=== PATIENT | female | born 2005 | race Caucasian/White ===

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

== ENCOUNTER 2024-02-03 12:34 | Outpatient (REF) | payer MEDICAID, SELFPAY ==
[2024-02-03 14:13] LABS: Anion Gap 13 (12-20); Blood Urea Nitrogen 7 mg/dL (9-16); Carbon Dioxide 27 mmol/L (22-29); Chloride 102 mmol/L (96-108); Estimated Glomerular Filt Rate > 60; Glucose Random 91 mg/dL (60-115); Potassium 4.2 mmol/L (3.3-5.1); Sodium 138 mmol/L (135-145)
[2024-02-04 05:34] LABS: Estimated Average Glucose 88 mg/dL; Hemoglobin A1C 92.1445 umol/L; Hemoglobin A1c % 4.7 % (<6.0); Total Hemoglobin (HGBA1C) 3302.3263 umol/L
[2024-02-04 12:31] LABS: Bacterial Vaginosis PCR NEGATIVE (Negative); Candida Group PCR NOT DETECTED (Not Detect); Candida glab krusei PCR DETECTED (Not Detect); Trichomonas vaginalis PCR NOT DETECTED (Not Detect)
== END 2024-02-03 12:35 | disposition home or self-care (01) ==
LOC: HO.HHCL 12:34
PROVIDERS: Visit Provider Nurse Practitioner Family
DX: N89.8 Other specified noninflammatory disorders of vagina (principal); E66.09 Other obesity due to excess calories; R30.0 Dysuria
CPT/HCPCS: 0352U; 36415; 80048; 83036; 87086

== ENCOUNTER 2025-03-07 16:06 | Outpatient (REF) | payer MEDICAID, SELFPAY ==
--- OUTSIDE RECORDS SUMMARY | 2025-03-07 15:00 | XMS_ITS | Encounter Summary ---
Author Organization [employer] Address [address] [place] [address] Care Team Providers Care Halfway House Counselor Name Role Phone Mahi Skinner MD Primary Care Provider [phone] Reason for Visit * Reason Comments UTI Cough Encounter Details Date Type Department Care Team ([facility] Contact Info) Description 03/07/2025 3:00 PM EST Office Visit [facility] [address] [place] [address] Cough in adult patient; UTI symptoms Social History Tobacco Use Types Packs/Day Years Used Date Smoking Tobacco: Never Passive Smoke Exposure: Never Smokeless Tobacco: Never Tobacco Cessation:Counseling Given: Not Answered Alcohol Use Standard Drinks/Week Comments Never 0 (1 standard drink = 0.6 oz pur e alcohol) Alcohol Answer Date Recorded Frequency of Alcohol Consumption Not on file 12/23/2023 Average Number of Drinks Not on file 024 Frequency of Binge Drinking Not on file 10/2023 Score 0 12/23/2023 Depression Answer Date Recorded Patient Health Questionnaire-9 Score 14 12/23/2023 Patient Health Questionnaire-9 Score 14 12/23/2023 Last PHQ-9: Questionnaire Data Not on file 1 Housing Stability Answer Date Recorded What is your housing situation today? I have meghana esposito 08/26/[address] you li ve. Do you have problems with any of the following? None of the above 08/26/2023 Food Insecurity Answer Date Recorded Within the past 12 months, y ou worried that your food would run out before you got money to buy more: Never True 08/26/2023 Within the past 12 months,th e food you bought just didn't last and you didn't have enough money to get more: Never True 01/2024 Transportation Answer Date Recorded In the past 12 months, has l ack of transportation kept you from medical appts, meetings, work or from getting things needed for daily living? No 08/26/2023 Utilities Answer Date Recorded In the past 12 months, has t he electric, gas, oil or water company threatened to shut off services in your home? No 08/26/2023 Depression Answer Date Recorded Patient Health Questionnaire-2 Score 2 12/23/2023 Comments Unknown Sex and Gender Information Value Date Recorded Sex Assigned at Female 01/14/2022 10:29 AM EDT Legal Sex Female 10:29 AM EDT Gender Identity Female 01/14/2022 10:29 AM EDT Sexual Orientation Bisexual 06/06/2022 11 :22 AM EDT documented as of this encounter Last Filed Vital Signs Vital Sign Reading Time Taken Comments Blood Pressure 156/84 03/07/2025 3:07 PM EST Pulse 80 03/07/2025 3:07 PM EST Temperature 36.7 C (98.1 F) 03/07/2025 3:07 PM EST Respiratory Rate 16 03/07/2025 3:07 PM EST Oxygen Saturation 99% 03/07/2025 3:07 PM EST Inhaled Oxygen Concentration - - Weight 99.8 kg (220 lb) 03/07/2025 3:07 PM EST Height - - Body Mass Index 37.76 02/03/2024 11:20 AM EST documented in this encounter Plan of Treatment Upcoming Encounters Date Type Department Care Team (Late st Contact Info) Description 05/04/2025 11:00 AM EST Office Visit [facility] [address] [place] [address] Afshin, Radha, OD [address] [place] [address] Scheduled Orders Name Type Priority Associated Diagnoses Orde r Schedule Culture, Urine, Routine Microbiology Routine UTI symptoms Ordered: 03/07/2025 Bacterial Vaginosis Microbiology Routine UTI symptoms Ordered: 03/07/2025 documented as of this encounter Procedures Procedure Name Priority Date/Time Associated Diagnosis Comments POCT INFLUENZA B (ID NOW RAPID MOLECULAR) Routine 03/07/2025 3:24 PM EST Cough in adult patient POCT INFLUENZA A (ID NOW RAPID MOLECULAR) Routine 03/07/2025 3:24 PM EST Cough in adult patient POCT RAPID COVID ANTIGEN Routine 03/07/2025 3:21 PM EST Cough in adult patient POCT URINALYSIS DIPSTICK Routine 03/07/2025 3:21 PM EST UTI symptoms documented in this encounter Results * Influenza A (ID NOW Rapid Molecular) (03/07/2025 3:24 PM EST) [facility] Influenza A Negative Negative, Indeterminate [facility] Swab 03/07/2025 3:24 PM EST [facility] POINT OF CARE TEST ENTER/EDIT ORDERABLES Final Result Performing Organization Address [facility] Co de Phone Number [facility] [address] [place] [phone] * Influenza B (ID NOW Rapid Molecular) (03/07/2025 3:24 PM EST) [facility] Influenza B Negative Negative, Indeterminate [facility] Swab 03/07/2025 3:24 PM EST Result [facility] POINT OF CARE TEST ENTER/EDIT ORDERABLES Final Result Performing Organization Address [facility] Co de Phone Number [facility] [address] [place] [phone] * POCT Rapid COVID Ag (03/07/2025 3:21 PM EST) [facility] Rapid COVID Ag Negative Swab 03/07/2025 3:21 PM EST [facility] POINT OF CARE TEST ENTER/EDIT ORDERABLES Final Result * (ABNORMAL) POCT urinalysis dipstick manually resulted (CPT 29255) (03/07/2025 3:21 PM EST) Color, UA Yellow Comment:Dark Clarity, UA Clear Glucose, UA Negative Bilirubin, UA Negative Ketones, UA Positive Comment:Trace Spec Grav, UA 1.025 Blood, UA Positive(A) Negative, None Detected pH, UA 6.5 Protein, UA Moderate Comment:30Mg Urobilinogen, UA 0.2 Leukocytes, UA Negative Negative, Rare, Trace, 1+ (17), 2+ (35), 3+ (70), Trace (15) Nitrite, UA Negative Negative, None Detected Appearance, UA OK Urine (Urine, Random) 03/07/2025 3:21 PM EST [facility] POINT OF CARE TEST ENTER/EDIT ORDERABLES Final Result documented in this encounter Visit Diagnoses Diagnosis Cough in adult patient UTI symptoms documented in this encounter Additional Health Concerns Assessment Noted Time PHQ-9 Depression Total Score: 14 024 11:46 AM EDT documented as of this encounter Care Teams Halfway House Counselor Relationship Specialty Start Date End Date Mahi Skinner MD [address] [place] [phone] PCP - General Pediatrics 12/11/15 documented as of this encounter
--- OUTSIDE RECORDS SUMMARY | 2025-03-07 18:45 | XMS_ITS | Encounter Summary ---
Author Organization [employer] Address [address] [place] [address] [address] [place] [address] Care Team Providers Care Authorization Manager Name Role Phone Mahi Skinner MD Primary Care Provider Encounter Details Date Type Department Care Team (Late st Contact Info) Description 05/28/2023 Orders Only [facility] [address] [place] [address] Carol Lopez MD [address] [place] [address] Asymptomatic microscopic hematuria (Primary Dx) Social History Tobacco Use Types Packs/Day Years Used Date Smoking Tobacco: Never Passive Smoke Exposure: Never Smokeless Tobacco: Never Comments Unknown Sex and Gender Information Value Date Recorded Sex Assigned at Female 01/14/2022 10:29 AM EDT Legal Sex Female 10:29 AM EDT Gender Identity Female 01/14/2022 10:29 AM EDT Sexual Orientation Bisexual 06/06/2022 11 :22 AM EDT documented as of this encounter Plan of Treatment Upcoming Encounters Date Type Department Care Team (Late st Contact Info) Description 05/04/2025 11:00 AM EST Office Visit [facility] [address] [place] [address] Afshin, Radha, OD [address] [place] [address] documented as of this encounter Procedures Procedure Name Priority Date/Time Associated Diagnosis Comments URINALYSIS, COMPLETE, WITH REFLEX TO CULTURE Routine 06/16/2023 12:15 PM EDT Asymptomatic microscopic hematuria documented in this encounter Results * Urinalysis, Complete, with Reflex to Culture (06/16/2023 12:15 PM EDT) Color Urine Yellow [facility] Appearance Urine Clear [facility] PH 6.5 5.0 - 9.0 [facility] Glucose Urine UA Negative Negative mg/dL [facility] Urine Blood Negative Negative [facility] Specific [place] - Urine 1.025 1.005 - 1.025 [facility] Urine Protein Trace Neg-Trace mg/dL [facility] Urine Ketones Negative Negative mg/dL [facility] Nitrite Urine Negative Negative [facility] Leukocyte Esterase Urine Negative Negative [facility] RBC Urine 0-2 0 - 2 /HPF [facility] Urine WBC 0-5 0 - 5 /HPF [facility] Urine Squamous Epithelial Cell 0-2 0 - 2 /HPF [facility] Urine Bacteria Trace None Seen [facility] Hyaline Casts, Urine 3-5 0 - 2 /LPF [facility] Urine 06/16/2023 12:1 5 PM EDT 06/16/2023 1:29 PM EDT Narrative [facility] - 06/16/2023 2:35 PM EDT Urine, Clean Catch us Carol Lopez MD LAB URINE ORDERABLES Final Re sult [facility] [address] [place] [phone] documented in this encounter Visit Diagnoses Diagnosis Asymptomatic microscopic hematuria- Primary documented in this encounter Care Teams Authorization Manager Relationship Specialty Start Date End Date Mahi Skinner MD [address] [place] [address] PCP - General Pediatrics 12/11/15 documented as of this encounter
--- OUTSIDE RECORDS SUMMARY | 2025-03-07 18:45 | XMS_ITS | Encounter Summary ---
Author Organization [employer] Address [address] [facility] [address] [place] [address] Care Team Providers Care Manager Content Name Role Phone Mahi Skinner MD Primary Care Provider [phone] Reason for Visit * Reason Onset Date Comments Med Refill 12/28/2024 Encounter Details Date Type Department Care Team ([facility] Contact Info) Description 12/28/2024 Telephone [facility] [address] [place], [place] [phone] Mahi Skinner MD [address] [place], [place] [phone] Med Refill Social History Tobacco Use Types Packs/Day Years Used Date Smoking Tobacco: Never Passive Smoke Exposure: Never Smokeless Tobacco: Never Alcohol Use Standard Drinks/Week Comments Never 0 [...] AM EDT documented as of this encounter Miscellaneous Notes * Telephone Encounter - Mahi Mcfarland MD - 12/28/2024 12:35 PM EDT Script sent to [facility] pharmacy * Telephone Encounter - Eliane Lucas LPN - 12/28/2024 12:23 PM EDT Please review does PCP prescribe? * Telephone Encounter - Ellie Hilario - 12/28/2024 12:03 PM EDT TC from pt requesting medication refill. Medications needing refill : - valACYclovir (Valtrex) 500 MG tablet To be sent to: - [facility] - [place], [place] - [address] documented in this encounter Plan of Treatment Upcoming Encounters Date Type Department Care Team (Late st Contact Info) Description 05/04/2025 11:00 AM EST Office Visit [facility] [address] [place], [place] [phone] Radha Pepe, OD [address] [place] [address] documented as of this encounter Visit Diagnoses Not on filedocumented in this encounter Additional Health Concerns Assessment Noted Time PHQ-9 Depression Total Score: 14 024 11:46 AM EDT documented as of this encounter Care Teams Manager Content Relationship Specialty Start Date End Date Mahi Skinner MD [address] [place] [address] PCP - General Pediatrics 12/11/15 documented as of this encounter
--- OUTSIDE RECORDS SUMMARY | 2025-03-07 18:45 | XMS_ITS | Encounter Summary ---
Author Organization [employer] Address [address] [place] [address] [address] [place] [address] Care Team Providers Care Travel Insurance Agent Name Role Phone Mahi Skinner MD Primary Care Provider [phone] Reason for Visit * Reason Onset Date Comments Pt1 12/24/2022 Encounter Details Date Type Department Care Team ([facility] Contact Info) Description 12/24/2022 Telephone [facility] [address] [place] [phone] Mahi Skinner MD [address] [place] [phone] Pt1 Social History Tobacco Use Types Packs/Day Years [...] encounter Miscellaneous Notes * Telephone Encounter - Irene Jin - 12/24/2022 3:27 PM EDT PT 1 initiated using site guardian will receive letter with instructions * Telephone Encounter - Lakeisha Tim - 12/24/2022 2:19 PM EDT Tc from pt mother requesting a PT1 Location: [facility] [address] [facility] Specialty:Dental appt Date&Time:01/09/23 @ 1pm K 12 Principal: yes documented in this encounter Plan of Treatment Upcoming Encounters Date Type Department Care Team (Late st Contact Info) Description 05/04/2025 11:00 AM EST Office Visit [facility] [address] [place] [address] Radha Pepe, OD [address] [place], [place] [phone] documented as of this encounter Visit Diagnoses Not on filedocumented in this encounter Care Teams Travel Insurance Agent Relationship Specialty Start Date End Date Mahi Skinner MD [address] [place], [place] [phone] PCP - General Pediatrics 12/11/15 documented as of this encounter
--- OUTSIDE RECORDS SUMMARY | 2025-03-07 18:45 | XMS_ITS | Encounter Summary ---
Author Organization [employer] Address [address] [facility] [address] [place] [address] Care Team Providers Care Studio Sales Associate Name Role Phone Mahi Skinner MD Primary Care Provider Encounter Details Date Type Department Care Team (Late Contact Info) Description 03/14/[address] [facility] [address] [place] [address] Amy Willams DDS Social History Tobacco Use Types Packs/Day Years Used Date Smoking Tobacco: Never Assessed Comments Unknown Sex and Gender Information Value Date Recorded Sex Assigned at Female 01/14/2022 10:29 AM EDT Legal Sex Female 10:29 AM EDT Gender Identity Female 01/14/2022 10:29 AM EDT Sexual Orientation Bisexual 06/06/2022 11 :22 AM EDT documented as of this encounter Plan of Treatment Upcoming Encounters Date Type Department Care Team ([facility] Contact Info) Description 05/04/2025 11:00 AM EST Office Visit [facility] [address] [place] [address] Afshin, Radha, OD [address] [place] [address] documented as of this encounter Procedures Procedure Name Priority Date/Time Associated Diagnosis Comments 19 DO COMPOSITE FILLING Routine 03/14/2022 12:00 AM EST 18 O COMPOSITE FILLING Routine 03/14/2022 12:00 AM EST 15 O COMPOSITE FILLING Routine 03/14/2022 12:00 AM EST 14 L COMPOSITE FILLING Routine 03/14/2022 12:00 AM EST 13 MO COMPOSITE FILLING Routine 03/14/2022 12:00 AM EST 12 DO COMPOSITE FILLING Routine 03/14/2022 12:00 AM EST 10 MIFL COMPOSITE FILLING Routine 03/14/2022 12:00 AM EST 9 DF COMPOSITE FILLING Routine 03/14/2022 12:00 AM EST 7 MF COMPOSITE FILLING Routine 03/14/2022 12:00 AM EST 31 EDWINA COMPOSITE FILLING Routine 03/14/2022 12:00 AM EST 30 EDWINA COMPOSITE FILLING Routine 03/14/2022 12:00 AM EST 3 LO COMPOSITE FILLING Routine 03/14/2022 12:00 AM EST 2 O COMPOSITE FILLING Routine 03/14/2022 12:00 AM EST documented in this encounter Visit Diagnoses Not on filedocumented in this encounter Care Teams Studio Sales Associate Relationship Specialty Start Date End Date Mahi Skinner MD [address] [place] [address] PCP - General Pediatrics 12/11/15 documented as of this encounter
--- OUTSIDE RECORDS SUMMARY | 2025-03-07 18:45 | XMS_ITS | Clinical Summary ---
Demographics Address [address] [place] [address] Mobile Phone Home Phone Work Phone Email Address Preferred Language en Marital Status Single Zoroastrianism Affiliation Unknown Race White Ethnic Group Unknown Author Organization [employer] Address [address] [place] [address] Care Team Providers Care Clearance Center Manager Name Role Phone Mahi Skinner MD Primary Care Provider Allergies Active Allergy Reactions Criticality Noted Date Comments Amoxicillin 05/26/2017 Penicillin G 04/10/2016 Sulfamethoxazole 05/26/2017 Trimethoprim 05/26/2017 Medications * This document contains information received from the source organization and may not represent a complete record from that organization. Sodium Fluoride 1.1 % cream [place] with a pea size amount of toothpaste morning and bedtime. Floss between teeth. Do not rinse. Spit out excess. 56 g 10 3 Active Additional Information Patient not taking.Reported on 12/23/2023 Skin Protectants, Misc. (Minerin Creme) cream Apply 1 Application topically if needed in the morning and at bedtime (dry skin). 454 g 3 4 Active FLUoxetine (PROzac) 10 MG tabletIndication s:Anxiety Take 1 tablet (10 mg) by mouth Once per day. 90 tablet 4 Active melatonin 5 MG tabletIndication s:Sleep difficulties TAKE 1 OR 2 TABLETS BY MOUTH EVERY DAY 1 HOUR BEFORE BEDTIME 60 tablet 1 4 Active ibuprofen 600 MG tabletIndication s:Influenza A 1 tab q 6 hours prn fever or pain 30 tablet 1 5 Active Active Problems Problem Noted Date Diagnosed Date BOWEN (generalized anxiety disorder) 02/03/2024 Assessment & Plan (02/03/2024 5:48 PM EST): Pt took first dose of prozac in office, Plans to set timer on phone Return to clinic in 3 months, sooner prn Obesity due to excess calori es without serious comorbidity with body mass index (BMI) in 95th to 98th percentile for age in pediatric patient 02/03/2024 Assessment & Plan (02/03/2024 5:50 PM EST): Metabolic labs as ordered below HSV (herpes simplex virus) infection 12/23/2023 Assessment & Plan (12/23/2023 11:32 AM EDT): Reviewed options of episodic management vs daily prevention, pt opts for episodic management at this time Moderate depressive disorder 12/08/2023 Myopia 12/15/2017 PCOS (polycystic ovarian syndrome) 05/20/2017 Allergic rhinitis 01/16/2017 Attention deficit hyperactivity disorder 016 Oppositional defiant disorder 12/12/2015 Resolved Problems Problem Noted Date Diagnosed Date Resolved Date Dysuria 02/03/2024 07/13/2024 Assessment & Plan (02/03/2024 5:49 PM EST): UA reassuring, Culture pending Vaginal discharge 02/03/2024 07/13/2024 Assessment & Plan (02/03/2024 5:48 PM EST): Pt opts for self swab today, denies sexual activity, Will treat pending results 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 -discussed supportive treatment -prescribed abx ear drops 11/28/23 -discussed ER and return precautions Viral syndrome 11/28/2023 12/05/2023 Assessment & Plan (11/28/2023 3:07 PM EDT): COVID, Strep and Flu negative. -No evidence of respiratory distress. Symptoms mild. -No evidence of dehydration. -Supportive care advised. -Isolation recommendations discussed. -ER precautions discussed. -Seek medical attention for worsening symptoms. Elevated blood pressure read ing without diagnosis of hypertension 11/28/2023 07/13/2024 Overview (11/28/2023): BP elevated, was normal prior. Pt was coughing. Recheck at next visit. Anxiety 06/26/2017 07/13/2024 Assessment & Plan (01/10/2024 12:06 PM EDT): Pt plans to start fluoxetine 10 mg as prescribed by Dr. Coe, follow up in 6 weeks Referral to to start counseling Encounters Date Type Department Care Team Description 03/07/2025 3:00 PM EST Office Visit [facility] [address] [place] [address] Cough in adult patient; UTI symptoms 03/07/2025 Travel 12/28/2024 Orders Only [facility] [address] [place] [address] Mahi Skinner MD 12/28/2024 Telephone [facility] [address] [place] [address] Mahi Skinner MD Med Refill 12/28/2024 Refill [facility] [address] [place] [address] Marbella Pablo, TAMIKA Herpesviral infection, unspecified 12/28/2024 Travel from Last 3 Months Immunizations Immunization Administration Dates Next Due DTaP 07/26/2008, 6,2004,10/09 DTaP / Hep B / IPV 2004,2004, 005 DTaP, 5 pertussis antigens 2004 HPV 9-Valent 12/05/2014 HPV, Unspecified 09/15/2015,05/05/2015 Hep A, ped/adol, 2 dose 04/08/2007,06/24/2005 Hep B, Adolescent or Pediatric 5,2004,2004,05/29 HiB, unspecified 10/10/2005 Hib (HbOC) 2004,2004,2004 IPV 07/26/2008, 5,2004,07/31 Influenza injectable quadriv alent IIV4 with preservative 01/09/2009,04/08/2007,12/19/2005 Influenza, IIV3, injectable 02/01/2005, 5 Influenza, Unspecified 12/30/2006 Influenza, injectable, quadr ivalent, preservative free, pediatric 11/25/2012,12/03/2010,11/30/2009,01/30 MMR 07/26/2008,10/10/2005 Meningococcal MCV4P ACYW-135 12/05/2020,12/11/19 16 Pneumococcal Conjugate PCV 13 06/24/2005 Pneumococcal Conjugate PCV 7 2004,10/10/19 05,2004 Tdap 01/03/2016 Varicella 07/26/2008,10/10/2005,2004 Social History Tobacco Use Types Packs/Day Years [...] Orientation Bisexual 06/06/2022 11 :22 AM EDT Last Filed Vital Signs Vital Sign Reading Time Taken Comments Blood Pressure 156/84 03/07/2025 3:07 PM EST Pulse 80 03/07/2025 3:07 PM EST Temperature 36.7 C (98.1 F) 03/07/2025 3:07 PM EST Respiratory Rate 16 03/07/2025 3:07 PM EST Oxygen Saturation 99% 03/07/2025 3:07 PM EST Inhaled Oxygen Concentration - - Weight 99.8 kg (220 lb) 03/07/2025 3:07 PM EST Height 162.6 cm (5' 4 ) 02/03/2024 11:20 AM EST Body Mass Index 37.76 02/03/2024 11:20 AM EST Plan of Treatment Upcoming Encounters Date Type Department Care Team (Late st Contact Info) Description 05/04/2025 11:00 AM EST Office Visit [facility] [address] [place] [address] Afshin, Radha, OD [address] [place] [address] Health Maintenance Due Date Last Done Comments Dental X-Ray: Full Mouth 2004 HIV Screening 2004 Lipid Panel 2004 Disability Screening 2004 Alcohol/Substance Use Screening 2016 Family Planning (PISQ) 05/30/2019 Meningococcal B Vaccine (1 of 2 - Standard) 2020 Hepatitis C Screening 2022 Dental X-Ray: Bitewings 03/20/2023 03/19/2022 Dental Oral Exam 04/03/2023 09/30/2022, 03/19/2022 Dental Prophylaxis 04/03/2023 09/30/2022, 03/19/2022 Chlamydia and Gonorrhea Screening 05/18/2024 05/19/2023 Depression Monitoring 06/22/2024 12/23/2023, 024 SDOH Screening 08/25/2024 08/26/2023 COVID-19 Vaccine ( - season) 2024 Influenza Vaccine (#1) 2024 3, 12/03/2010, 11/30/2009, Additional history exists DTaP/Tdap/Td Vaccines (7 - Td or Tdap) 01/02/2026 01/03/2016, 07/26/2008, 10/10/2005, Additional history exists Tobacco Screening 03/07/2026 03/07/2025 Zoster Vaccines (1 of 2) 2054 RSV Patients and Patients Aged 60 years or older (1 - 1-dose 75+ series) 05/30/2079 Hepatitis B Vaccines Completed 2004, 2004, 2004, Additional history exists Pneumococcal Vaccine: Pediatrics (0 to 5 Years) and At-Risk Patients (6 to 49) Years Completed 06/24/2005, 2004, 2004, Additional history exists HIB Vaccines Completed 10/10/2005, 11/16, 2004, Additional history exists Hepatitis A Vaccines Completed 04/08/2007, 06/25/19 06 IPV Vaccines Completed 07/26/2008, 11/16, 2004, Additional history exists HPV Vaccines Completed 09/15/2015, 04/17, 12/05/2014 Meningococcal Vaccine Completed 12/05/2020, 016 RSV under 20 months Aged Out No longe r eligible based on patient's age to complete this topic Rotavirus Vaccines Aged Out No longer eligible based on patient's age to complete this topic Procedures Procedure Name Priority Date/Time Associated Diagnosis Comments POCT INFLUENZA A (ID NOW RAPID MOLECULAR) Routine 03/07/2025 3:24 PM EST Cough in adult patient POCT INFLUENZA B (ID NOW RAPID MOLECULAR) Routine 03/07/2025 3:24 PM EST Cough in adult patient POCT RAPID COVID ANTIGEN Routine 03/07/2025 3:21 PM EST Cough in adult patient POCT URINALYSIS DIPSTICK Routine 03/07/2025 3:21 PM EST UTI symptoms SURESWAB(R) ADVANCED VAGINITIS PLUS, TMA Routine 05/19/2023 12:00 AM EST UTI symptoms Full PROPHYLAXIS - ADULT Routine 09/30/2022 2:00 PM EDT PERIODIC ORAL EVALUATION - ESTABLISHED PATIENT Routine 09/30/2022 2:00 PM EDT BITEWINGS - 4 RADIOGRAPHIC IMAGES Routine 03/19/2022 11:00 AM EST from Last 3 Months or Most Recently Relevant to Health Maintenance Results * Influenza B (ID NOW Rapid Molecular) (03/07/2025 3:24 PM EST) [facility] Influenza B Negative Negative, Indeterminate [facility] Swab 03/07/2025 3:24 PM EST [facility] POINT OF CARE TEST ENTER/EDIT ORDERABLES Final Result Performing Organization Address [facility] de Phone Number [facility] [address] [place] [phone] * Influenza A (ID NOW Rapid Molecular) (03/07/2025 3:24 PM EST) [facility] Influenza A Negative Negative, Indeterminate [facility] Swab 03/07/2025 3:24 PM EST [facility] WOMEN DESIGNER POINT OF CARE TEST ENTER/EDIT ORDERABLES Final Result Performing Organization Address [facility] Co de Phone Number [facility] [address] [place] [phone] * POCT Rapid COVID Ag (03/07/2025 3:21 PM EST) [facility] Rapid COVID Ag Negative Swab 03/07/2025 3:21 PM EST [facility] POINT OF CARE TEST ENTER/EDIT ORDERABLES Final Result * (ABNORMAL) POCT urinalysis dipstick manually resulted (CPT 80683) (03/07/2025 3:21 PM EST) Pathologist [facility] Color, UA Yellow Comment:Dark Clarity, UA Clear [...] Urine (Urine, Random) 03/07/2025 3:21 PM EST [facility] POINT OF CARE TEST ENTER/EDIT ORDERABLES Final Result * SureSwab?? Advanced Vaginitis Plus, TMA (05/19/2023 12:00 AM EST) [facility] CTNG Ref Lab NOT DETECTED NOT DETECTED [facility] NG Ref Lab NOT DETECTED NOT DETECTED [facility] Comment:For additional infor young, please refer tohttps://education.flaveit/faq/ZFU937(This link is being provided for information/educational purposes only.)THIS TEST WAS PERFORMED AT:[address] [place] [phone] PEACOCK MD SureSwab 9R) ADV Bacterial Vaginosis (BV), TMA NEGATIVE NEGATIVE [facility] Apple Species NOT DETECTED NOT DETECTED [facility] Apple glabrata NOT DETECTED NOT DETECTED [facility] Comment:Apple species C. a lbicans, C. tropicalis,C. parapsilosis, and/or C. dubliniensis can be detected,but not differentiated, in the Apple spp. result. Trichomonas vaginalis (TV), TMA NOT DETECTED NOT DETECTED [facility] 05/19/2023 05/19/2023 Carol Lopez MD LAB BODY FLUIDS AND STOOLS OR DERABLES Final Result [facility] [address] [place] [phone] [phone] from Last 3 Months or Most Recently Relevant to Health Maintenance Insurance [employer] [facility] [facility] [employer] Care Teams Clearance Center Manager Relationship Specialty Start Date End Date Mahi Skinner MD [address] [place] [phone] PCP - General Pediatrics 12/11/15
--- OUTSIDE RECORDS SUMMARY | 2025-03-07 18:45 | XMS_ITS | Encounter Summary ---
Demographics Address [address] [place] [address] Mobile Phone Home Phone Work Phone Email Address Preferred Language en Marital Status Single Evangelical Affiliation Unknown Race White Ethnic Group Unknown Author Organization [employer] Address [address] [place] [address] Care Team Providers Care Glass Pulverizer Equipment Operator Name Role Phone Mahi Skinner MD Primary Care Provider [phone] Encounter Details Date Type Department Care Team (Latest Contact Info) Description 03/07/2025 Travel Social History Tobacco Use Types Packs/Day Years [...] Description 05/04/2025 11:00 AM EST Office Visit [facility] [address] [place], [place] [phone] Radha Pepe, OD [address] [place] [address] documented as of this encounter Visit Diagnoses Not on filedocumented in this encounter Additional Health Concerns Assessment Noted Time PHQ-9 Depression Total Score: 14 024 11:46 AM EDT documented as of this encounter Care Teams Glass Pulverizer Equipment Operator Relationship Specialty Start Date End Date Mahi Skinner MD [address] [place], [place] [phone] PCP - General Pediatrics 12/11/15 documented as of this encounter
[2025-03-08 12:40] LABS: Bacterial Vaginosis PCR NEGATIVE (Negative); Candida Group PCR NOT DETECTED (Not Detect); Candida glab krusei PCR NOT DETECTED (Not Detect); Trichomonas vaginalis PCR NOT DETECTED (Not Detect)
== END 2025-03-07 16:07 | disposition home or self-care (01) ==
LOC: HO.HHCLNP 16:06
PROVIDERS: Visit Provider Registered Nurse
DX: R39.9 Unspecified symptoms and signs involving the genitourinary system (principal)
CPT/HCPCS: 81515; 87086